=== PATIENT | male | born 2000 | race Caucasian/White ===

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

== ENCOUNTER 2022-03-17 16:29 | Emergency (ER) | payer OTHER ==
[2022-03-17] MEDS ORDERED: ACETAMINOPHEN 325 MG TABLET (FP) PO ONE (16:57)
[2022-03-17 17:07] VITALS: BP 125/76; PULSE 57; RESP 16; TEMP 99.2; BMI 28.1
[2022-03-17] MEDS ORDERED: ACETAMINOPHEN 325 MG TABLET (FP) ONE (17:24)
== END 2022-03-17 18:23 | disposition home or self-care (01) ==
LOC: FER 16:29
DX: S62.021A Displaced fracture of middle third of navicular [scaphoid] bone of right wrist, initial encounter for closed fracture (principal); W01.0XXA Fall on same level from slipping, tripping and stumbling without subsequent striking against object, initial encounter
CPT/HCPCS: 73110-TC-RT-FY; 73130-TC-RT-FY; 99283-25

== ENCOUNTER 2022-07-07 01:37 | Emergency (ER) | payer OTHER ==
[2022-07-07 01:52] VITALS: BP 135/85; PULSE 87; RESP 20; TEMP 97.7; BMI 29.7
== END 2022-07-07 02:10 | disposition home or self-care (01) ==
LOC: FER 01:37
DX: F12.129 Cannabis abuse with intoxication, unspecified (principal)
CPT/HCPCS: 99283-25